=== PATIENT | male | born 1995 | race Caucasian/White ===

== ENCOUNTER 2018-09-02 19:30 | Observation (INO) | payer BC, OTHER ==
[2018-09-02] MEDS ORDERED: Meclizine HCl 25 MG TAB ONE (20:27)
[2018-09-02] MEDS ORDERED: Lorazepam 2 MG/ML VIAL ONE (20:27)
[2018-09-02] MEDS ORDERED: Diazepam 5 MG TAB ONE (21:19)
[2018-09-02 22:51] LABS: #Basophils 0.1 thou/uL (0.0-0.2); #Eosinphils 0.1 thou/uL (0.0-0.7); #Lymphocytes 2.9 thou/uL (1.20-3.40); #Monocytes 0.7 thou/uL (0.11-0.59); #Neutrophils 5.5 thou/uL (1.40-6.50); %Basophils 0.6 % (0.0-1.0); %Lymphocytes 31.2 % (21.0-51.0); %Monocytes 7.4 % (0.0-10.0); %Neutrophils 59.8 % (42.0-75.0); Hemoglobin 14.6 g/dL (14.0-18.0); Mean Corpuscular HGB CONC 33.5 g/dL (32.0-36.0); Mean Corpuscular Volume 89.6 fL (78.0-98.0); Mean Platelet Volume 7.3 fL (7.4-10.4); Platelet Count 269 thou/uL (130-400); RBC Distribution Width 11.7 % (11.5-14.5); Red Blood Cell (RBC) Count 4.88 mill/uL (4.70-6.10); White Blood Cell (WBC) Count 9.1 thou/uL (4.8-10.8)
[2018-09-02 23:10] LABS: ALT (SGPT) 31 U/L (8-55); AST (SGOT) 23 U/L (5-34); Albumin 4.2 g/dL (3.5-5.0); Alkaline Phosphatase 50 U/L (40-150); Anion Gap 12 mmol/L (10-20); BUN (Urea Nitrogen) 10 mg/dL (8.9-20.6); Bilirubin, Total 0.5 mg/dL (0.2-1.2); Calc. Creatinine Clearance 0 mL/min (70-130); Calcium 9.3 mg/dL (7.8-10.44); Carbon Dioxide 25 mmol/L (22-29); Chloride 108 mmol/L (98-107); Estimated GFR-MDRD Greater than 90; Globulin 3.1 g/dL (2.4-3.5); Glucose 99 mg/dL (70-105); Potassium 3.7 mmol/L (3.5-5.1); Protein, Total 7.3 g/dL (6.0-8.3); Sodium 141 mmol/L (136-145)
[2018-09-03] MEDS ORDERED: Ondansetron ODT 4 MG TAB SL PRN (01:19)
[2018-09-03] MEDS ORDERED: Ondansetron PF 4 MG/2 ML Vial IVP PRN (01:19)
[2018-09-03 01:34] VITALS: BMI 44.7
[2018-09-03] MEDS: Acetaminophen 325 MG TAB PO PRN ×2 (01:49→14:04)
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
[2018-09-03] MEDS ORDERED: Sodium Chloride 0.9% 1,000 ML IV SCH (05:00)
[2018-09-03 05:41] LABS: #Basophils 0.1 thou/uL (0.0-0.2); #Eosinphils 0.2 thou/uL (0.0-0.7); #Lymphocytes 3.6 thou/uL (1.20-3.40); #Neutrophils 3.6 thou/uL (1.40-6.50); %Basophils 0.9 % (0.0-1.0); %Eosinophils 2.4 % (0.0-10.0); %Lymphocytes 42.2 % (21.0-51.0); %Monocytes 11.8 % (0.0-10.0); %Neutrophils 42.6 % (42.0-75.0); Hemoglobin 13.8 g/dL (14.0-18.0); Mean Corpuscular HGB CONC 33.6 g/dL (32.0-36.0); Mean Corpuscular Hemoglobin 30.4 pg (27.0-31.0); Mean Corpuscular Volume 90.5 fL (78.0-98.0); Mean Platelet Volume 7.5 fL (7.4-10.4); Platelet Count 249 thou/uL (130-400); RBC Distribution Width 11.7 % (11.5-14.5); Red Blood Cell (RBC) Count 4.54 mill/uL (4.70-6.10); White Blood Cell (WBC) Count 8.4 thou/uL (4.8-10.8)
[2018-09-03 06:00] LABS: Anion Gap 13 mmol/L (10-20); BUN (Urea Nitrogen) 10 mg/dL (8.9-20.6); Calc. Creatinine Clearance 307 mL/min (70-130); Carbon Dioxide 23 mmol/L (22-29); Chloride 110 mmol/L (98-107); Estimated GFR-MDRD Greater than 90; Glucose 89 mg/dL (70-105); Potassium 3.6 mmol/L (3.5-5.1); Sodium 142 mmol/L (136-145)
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
[2018-09-03] MEDS ORDERED: Meclizine HCl 25 MG TAB PO SCH (09:15)
[2018-09-03] MEDS: Enoxaparin Sodium 40 MG/0.4 ML SYRINGE SC SCH (09:25)
[2018-09-03] MEDS: Sodium Chloride 0.9% 1,000 ML IV SCH ×2 (09:26→19:00)
--- NOTE | 2018-09-03 09:27 | MRI ---
MRI BRAIN WITH AND WITHOUT CONTRAST: HISTORY: Vertigo, dizziness CORRELATION: CT scan without contrast from previous day FINDINGS: No restricted diffusion is seen. No evidence of infarct, hemorrhage or mass midline shift or abnormal extra-axial fluid collections is noted. The ventricular size is normal and the basilar cisterns are patent. No abnormal postcontrast enhancement is seen. No signal abnormalities are noted on the hi ghly sensitive FLAIR images. No blood products are noted on the gradient echo sequences. The visualized paranasal sinuses and mastoid air cells are well aerated. No tonsillar herniation is seen. IMPRESSION: Normal exam.
[2018-09-03] MEDS ORDERED: Gadobenate Dimeglumine 529 MG/1 ML (20ML VIAL) ONE (11:55)
[2018-09-03] MEDS: Meclizine HCl 25 MG TAB PO SCH ×2 (14:04→20:59)
[2018-09-03 14:36] LABS: Amphetamine Not Detected (NotDetected); Barbiturates Screen Not Detected (NotDetected); Benzodiazepine Screen Detected (NotDetected); Cocaine Metabolite Screen Not Detected (NotDetected); Medtox Control Line Valid? VALID (VALID); Medtox Reader # READER 4; Methadone Not Detected (NotDetected); Methamphetamine Not Detected (NotDetected); Opiate Screen Not Detected (NotDetected); Oxycodone Screen Not Detected (NotDetected); Phencyclidine (PCP) Not Detected (NotDetected); THC/Cannabinoid Screen Not Detected (NotDetected); Tricyclic Screen Not Detected (NotDetected)
--- NOTE | 2018-09-03 14:41 | PDOC.PN ---
- Subjective Encounter Start Date: 09/03/18 Encounter Start Time: 09:00 Subjective: Examined twice today, still very dizzy with movement -: Feels like he is going to fall with ambulation, feels off balance - Objective Resuscitation Status - Order Detail: 09/03/18 01:28 Resuscitation Status Routine Resuscitation Status: FULL: Full Resuscitation Vital Signs & Weight: Vital Signs (12 hours) Temp Pulse Resp BP BP BP BP 09/03/18 11:23 98.1 F 64 20 124/57 L 09/03/18 08:20 106/59 L 109/62 09/03/18 07:19 97.7 F 55 L 16 88/47 L 09/03/18 06:09 62 18 91/61 09/03/18 04:45 97.5 F L 62 18 86/51 L BP Pulse Ox 09/03/18 11:23 98 09/03/18 08:20 109/55 L 09/03/18 07:19 98 09/03/18 06:09 09/03/18 04:45 98 Weight Weight 137.484 kg I&O: 09/02/18 09/03/18 09/04/18 06:59 06:59 06:59 Intake Total 1480 Balance 1480 Result Diagrams: 09/03/18 04:49 09/03/18 04:49 Phys Exam - Physical Examination HEENT: PERRLA, moist MMs Neck: no nodes, full ROM Respiratory: clear to auscultation bilateral Cardiovascular: RRR Gastrointestinal: soft, non-tender Musculoskeletal: pulses present Neurological: normal sensation, moves all 4 limbs Dizziness, constant, worse with movement Psychiatric: normal affect, A&O x 3 Skin: cap refill <2 seconds Dx/Plan (1) Dizziness Code(s): R42 - DIZZINESS AND GIDDINESS Status: Acute (2) Nausea Code(s): R11.0 - NAUSEA Status: Acute - Plan cont current plan of care Continue scheduled meclizine, added a dose of steroids -: Continue IV fluids, recheck labs in AM * .
[2018-09-03] MEDS ORDERED: Bacteriostatic Water 30 ML VIAL FS PRN (14:42)
[2018-09-04] MEDS: Sodium Chloride 0.9% 1,000 ML IV SCH (05:32)
[2018-09-04] MEDS: Meclizine HCl 25 MG TAB PO SCH (05:32)
[2018-09-04] MEDS ORDERED: methylPREDNISolone Sod Succ 40 MG VIAL IVP SCH (09:00)
[2018-09-04] MEDS: Enoxaparin Sodium 40 MG/0.4 ML SYRINGE SC SCH (09:45)
[2018-09-04 12:46] VITALS: BP 134/74; TEMP 98.1
== END 2018-09-04 13:42 | disposition home or self-care (01) ==
LOC: ERS 19:30 → 2SW 09-03 00:25
PROVIDERS: ADMIT Hospitalist; ATTEND Hospitalist
DX: R42 Dizziness and giddiness (principal); Z87.828 Personal history of other (healed) physical injury and trauma
CPT/HCPCS: 36415; 70450; 70553; 80048; 80053; 80306; 85025; 93005; 96361; 96372; 96374; 96375; A9577; G0378; J1650; J2060; J2920; J8499

== ENCOUNTER 2018-10-06 02:52 | Emergency (ER) | payer BC, OTHER ==
[2018-10-06] MEDS ORDERED: Bupivacaine 0.5% 10 ML VIAL ONE (03:13)
== END 2018-10-06 03:31 | disposition home or self-care (01) ==
LOC: ERS 02:52
DX: K02.9 Dental caries, unspecified (principal); F17.210 Nicotine dependence, cigarettes, uncomplicated
CPT/HCPCS: 64400; J3490